=== PATIENT | female | born 1970 | race Hispanic/Latino ===

== ENCOUNTER 2024-09-09 15:29 | Inpatient (IN) | payer OTHER ==
[~2024-09-09] VITALS: Ht 162.6 cm; Wt 98.0 kg
[2024-09-09 16:49] LABS: BASOPHILS # (AUTO) 0.07 K/uL (0.00-0.20); BASOPHILS % (AUTO) 0.8 % (0.0-5.0); EOSINOPHILS # (AUTO) 0.15 K/uL (0.00-0.70); EOSINOPHILS % (AUTO) 1.7 % (0.0-8.0); HEMATOCRIT 24.7 % (36-48); IMMATURE GRANULOCYTE ABSOLUTE 0.04 K/uL (0-1); LYMPHOCYTES # (AUTO) 1.6 K/uL (1.0-4.8); LYMPHOCYTES % (AUTO) 17.2 % (21.0-51.0); MEAN CORPUSCULAR HGB CONC 30.8 g/dL (32.0-36.0); MEAN CORPUSCULAR VOLUME 77.9 fL (79-99); MONOCYTES # (AUTO) 0.6 K/uL (0.1-1.0); MONOCYTES % (AUTO) 6.6 % (3.0-13.0); NEUTROPHILS # (AUTO) 6.6 K/uL (1.8-7.7); NEUTROPHILS % (AUTO) 73.3 % (40.0-77.0); PLATELET COUNT (AUTO) 173 K/uL (130-400); RED BLOOD CELL COUNT(AUTO) 3.17 MIL/uL (4.00-5.50); RED CELL DISTRIBUTION WIDTH 16.1 % (11.0-15.5); WHITE BLOOD COUNT (AUTO) 9.1 K/uL (4.8-10.8)
[2024-09-09] MEDS: PANTOPrazole 40 MG/VIAL IVP ONE (16:56)
[2024-09-09] MEDS: 0.9%NACL 1000ML 1,000 ML IV ONE (16:56)
[2024-09-09] MEDS: ondanSETRON 4MG INJ IVP ONE (16:56)
[2024-09-09] MEDS: ondanSETRON 4MG INJ ONE (16:57)
[2024-09-09 17:02] LABS: CREATININE 0.8 mg/dL (0.5-1.0); POTASSIUM 3.8 mmol/L (3.5-5.1)
[2024-09-09] MEDS ORDERED: ondanSETRON 4MG INJ IVP PRN (20:00)
[2024-09-09] MEDS ORDERED: TEMAZepam 15 MG CAPSULE PO PRN (20:00)
[2024-09-09] MEDS ORDERED: hydrALAZine 20MG/ML VIAL IV PRN (20:00)
[2024-09-09] MEDS ORDERED: COMPOUND IV REFRIGERATED 1 EACH IVSOLN MISC PRN (20:00)
[2024-09-09] MEDS ORDERED: acetaMINOPHEN 325 MG TAB PO PRN (20:00)
[2024-09-09] MEDS ORDERED: LAbetaLOL 20MG SYG IV PRN (20:00)
[2024-09-09] MEDS ORDERED: acetaMINOPHEN 650 MG SUPPOSITORY RC PRN (20:00)
[2024-09-09] MEDS: LIDOCAINE HCL 2% VISCOUS 15 ML UDCUP PO ONE (20:07)
[2024-09-09] MEDS: PANTOPrazole 40MG INJ 80 MG in 0.9%NACL 100ML 100 ML IVP SCH (20:07)
[2024-09-09] MEDS: 0.9%NACL 1000ML 1,000 ML IV SCH (20:07)
[2024-09-09] MEDS: MAG/ALUM/SIMETH 30 ML UDCUP PO ONE (20:07)
[2024-09-09] MEDS ORDERED: vitamin d PO (20:40)
[2024-09-09] MEDS ORDERED: METF-446 PO (20:40)
[2024-09-09] MEDS: INSULIN humuLIN R 100 UNIT/ML 3ML SQ SCH (20:56)
[2024-09-09 21:10] VITALS: BP 129/69; PULSE 103; RESP 19; TEMP 98.1
[2024-09-09 21:12] LABS: APPEARANCE,URINE CLEAR (CLEAR); BILIRUBIN,URINE NEGATIVE (NEGATIVE); COLOR,URINE LIGHT-YELLOW (YELLOW); GLUCOSE, URINE (UA) 300 mg/dL (NEGATIVE); KETONES,URINE 40 mg/dL (NEGATIVE); LEUKOCYTE ESTERASE ,URINE NEGATIVE Leu/uL (NEGATIVE); NITRATE,URINE NEGATIVE (NEGATIVE); OCCULT BLOOD,URINE NEGATIVE (NEGATIVE); PROTEIN,URINE NEGATIVE (NEGATIVE); UROBILINOGEN,URINE 0.2 mg/dL (0.2-1.0)
[2024-09-09 21:13] LABS: ADD UA MICROSCOPIC YES
[2024-09-09 21:16] LABS: BACTERIA,URINE RARE /HPF (None Seen); MUCUS,URINE RARE LPF (None Seen); SQUAMOUS EPITHELIAL CELL,UR RARE /HPF (0-2)
[2024-09-09 23:57] LABS: MEAN CORPUSCULAR HEMOGLOBIN 24.7 pg (27.0-33.0); MEAN CORPUSCULAR HGB CONC 31.7 g/dL (32.0-36.0); MEAN CORPUSCULAR VOLUME 77.9 fL (79-99); RED BLOOD CELL COUNT(AUTO) 2.67 MIL/uL (4.00-5.50); RED CELL DISTRIBUTION WIDTH 16.1 % (11.0-15.5); WHITE BLOOD COUNT (AUTO) 8.4 K/uL (4.8-10.8)
[2024-09-10] VITALS (9 sets, daily range): BP systolic 104–144; BP diastolic 42–86; PULSE 67–82; RESP 15–19; TEMP 97.7–98.5; O2SAT 95–98
[2024-09-10] LABS: HEMATOCRIT 20.8 % (36-48)
[2024-09-10 04:57] LABS: BASOPHILS # (AUTO) 0.03 K/uL (0.00-0.20); BASOPHILS % (AUTO) 0.5 % (0.0-5.0); EOSINOPHILS # (AUTO) 0.13 K/uL (0.00-0.70); EOSINOPHILS % (AUTO) 2.1 % (0.0-8.0); HEMATOCRIT 24.5 % (36-48); IMMATURE GRANULOCYTE ABSOLUTE 0.01 K/uL (0-1); LYMPHOCYTES # (AUTO) 1.7 K/uL (1.0-4.8); LYMPHOCYTES % (AUTO) 27.9 % (21.0-51.0); MEAN CORPUSCULAR HEMOGLOBIN 25.1 pg (27.0-33.0); MEAN CORPUSCULAR VOLUME 80.9 fL (79-99); MONOCYTES # (AUTO) 0.6 K/uL (0.1-1.0); MONOCYTES % (AUTO) 9.6 % (3.0-13.0); NEUTROPHILS # (AUTO) 3.7 K/uL (1.8-7.7); NEUTROPHILS % (AUTO) 59.7 % (40.0-77.0); PLATELET COUNT (AUTO) 137 K/uL (130-400); RED BLOOD CELL COUNT(AUTO) 3.03 MIL/uL (4.00-5.50); RED CELL DISTRIBUTION WIDTH 16.7 % (11.0-15.5); WHITE BLOOD COUNT (AUTO) 6.1 K/uL (4.8-10.8)
[2024-09-10 05:11] LABS: CREATININE 0.6 mg/dL (0.5-1.0); PHOSPHORUS 3.3 mg/dL (2.5-4.9)
[2024-09-10 11:01] LABS: MEAN CORPUSCULAR HEMOGLOBIN 24.8 pg (27.0-33.0); MEAN CORPUSCULAR HGB CONC 30.8 g/dL (32.0-36.0); MEAN CORPUSCULAR VOLUME 80.6 fL (79-99); RED BLOOD CELL COUNT(AUTO) 3.1 MIL/uL (4.00-5.50); RED CELL DISTRIBUTION WIDTH 16.6 % (11.0-15.5); WHITE BLOOD COUNT (AUTO) 6.9 K/uL (4.8-10.8)
[2024-09-10 11:27] LABS: INR 1.16 (0.85-1.15); PROTHROMBIN TIME 12.4 SEC (9.6-11.6)
[2024-09-10 11:28] LABS: PARTIAL THROMBOPLASTIN TIME 25.6 SEC (26.3-35.5)
[2024-09-10] MEDS ORDERED: COMPOUND IV MISC 1 EACH IVSOLN MISC PRN (11:30)
[2024-09-10] MEDS ORDERED: COMPOUND IV REFRIGERATED 1 EACH IVSOLN MISC PRN (11:30)
[2024-09-10 17:06] LABS: HEMATOCRIT 25.6 % (36-48); MEAN CORPUSCULAR HEMOGLOBIN 25.2 pg (27.0-33.0); MEAN CORPUSCULAR HGB CONC 30.9 g/dL (32.0-36.0); MEAN CORPUSCULAR VOLUME 81.8 fL (79-99); RED BLOOD CELL COUNT(AUTO) 3.13 MIL/uL (4.00-5.50); RED CELL DISTRIBUTION WIDTH 16.6 % (11.0-15.5); WHITE BLOOD COUNT (AUTO) 7.2 K/uL (4.8-10.8)
[2024-09-11] VITALS (23 sets, daily range): BP systolic 97–155; BP diastolic 46–81; PULSE 68–85; RESP 15–19; TEMP 97.1–98.5; O2SAT 100
[2024-09-11 03:59] LABS: HEMATOCRIT 24.1 % (36-48); MEAN CORPUSCULAR HEMOGLOBIN 25.4 pg (27.0-33.0); MEAN CORPUSCULAR VOLUME 79.5 fL (79-99); RED BLOOD CELL COUNT(AUTO) 3.03 MIL/uL (4.00-5.50); RED CELL DISTRIBUTION WIDTH 16.4 % (11.0-15.5); WHITE BLOOD COUNT (AUTO) 6.2 K/uL (4.8-10.8)
[2024-09-11 04:10] LABS: CREATININE 0.7 mg/dL (0.5-1.0); POTASSIUM 3.7 mmol/L (3.5-5.1)
[2024-09-11] MEDS ORDERED: proPOFol 10 MG/ML 20ML VIAL IV ONE (12:49)
[2024-09-11] MEDS ORDERED: LIDOCAINE PF 100MG/5ML (2%) SYRINGE 5ML ONE (12:49)
[2024-09-11] MEDS: octREOtide aceTATe 1,250 MCG in 0.9% NACL 250ML 250 ML IV SCH (18:49)
[2024-09-11] MEDS: BisaCODYL 10 MG SUPP.RECT RC ONE (23:38)
[2024-09-11] MEDS: SIMETHICONE 80 MG TAB.CHEW PO SCH (23:38)
[2024-09-12 03:59] VITALS: BP 102/41; PULSE 73; RESP 17; TEMP 98.2
[2024-09-12 04:21] LABS: HEMATOCRIT 22.7 % (36-48); MEAN CORPUSCULAR HEMOGLOBIN 24.9 pg (27.0-33.0); MEAN CORPUSCULAR HGB CONC 31.3 g/dL (32.0-36.0); MEAN CORPUSCULAR VOLUME 79.6 fL (79-99); RED BLOOD CELL COUNT(AUTO) 2.85 MIL/uL (4.00-5.50); RED CELL DISTRIBUTION WIDTH 16.5 % (11.0-15.5); WHITE BLOOD COUNT (AUTO) 5.1 K/uL (4.8-10.8)
[2024-09-12 04:25] LABS: CREATININE 0.6 mg/dL (0.5-1.0); POTASSIUM 3.9 mmol/L (3.5-5.1)
[2024-09-12 07:54] VITALS: BP 116/73; PULSE 71; RESP 19; TEMP 97.8
[2024-09-12 08:00] VITALS: O2SAT 100
[2024-09-12 11:10] VITALS: BP 114/45; PULSE 73; RESP 20; TEMP 98.3
[2024-09-12] MEDS ORDERED: PANT40TA54 PO (11:18)
== END 2024-09-12 13:39 | disposition home or self-care (01) | DRG 432 ==
LOC: EDH 15:29 → EDHIP 19:36 → 4CH 20:43
PROVIDERS: ADMIT Internal Medicine; ATTEND Internal Medicine
PROC: 30233N1 Transfusion of Nonautologous Red Blood Cells into Peripheral Vein, Percutaneous Approach (ICD-10-PCS; 2024-09-10)
PROC: 06L38CZ Occlusion of Esophageal Vein with Extraluminal Device, Via Natural or Artificial Opening Endoscopic (ICD-10-PCS; principal; 2024-09-11)
DX: K74.69 Other cirrhosis of liver (principal); I85.11 Secondary esophageal varices with bleeding; D62 Acute posthemorrhagic anemia; N17.9 Acute kidney failure, unspecified; K76.6 Portal hypertension; E86.0 Dehydration; E11.65 Type 2 diabetes mellitus with hyperglycemia; K76.0 Fatty (change of) liver, not elsewhere classified; E66.9 Obesity, unspecified; K31.89 Other diseases of stomach and duodenum; Z68.37 Body mass index [BMI] 37.0-37.9, adult
CPT/HCPCS: 36415; 36430; 43244; 74176; 80048; 81001; 82270; 82550; 82948; 83735; 84100; 84484; 85025; 85027; 85610; 85730; 86850; 86900; 86901; 86923; 93005; 96372; 96375; 96376; A4606; G0378; J1815; J2003; J2354; J2405; J2470; J2704; J7030; J7050; P9016; A4215; A4222; A4223; A4620; A4657; J3490